=== PATIENT | female | born 1945 | race Caucasian/White ===

== ENCOUNTER 2018-04-03 12:30 | Observation (INO) | payer OTHER ==
[~2018-04-03] VITALS: Ht 160 cm; Wt 64.2 kg
--- NOTE | 2018-04-03 12:41 | ED GENERAL ADULT ---
History of Present Illness General Chief Complaint: General Adult Stated Complaint: RECTAL BLEEDING Source: patient Exam Limitations: no limitations Vital Signs & Intake/Output Vital Signs & Intake/Output Vital Signs Date Time Temp Pulse Resp B/P B/P Pulse O2 O2 Flow FiO2 Mean Ox Delivery Rate 04/03 1236 98.2 83 18 148/89 98 Room Air Allergies Coded Allergies: Penicillins (Intermediate, RASH 04/03/18) Sulfa (Sulfonamide Antibiotics) (Intermediate, RASH 04/03/18) codeine (Intermediate, N/V 04/03/18) Triage Note: HAS INTERNAL HEMERRHOID THAT WAS BANDED BY DR MAHARAJ YESTERDAY AND HAS NOT STOPPED BLEEDING, PASSING CLOTS. HAS GONE THROUGH 2 PADS SINCE LAST NIGHT. DENIES DIZZINESS. COLORING APPROPRIATE. Triage Nurses Notes Reviewed? yes Onset: Abrupt Duration: hour(s): Timing: recent history HPI: 04/03/18 2:30 PM 72-year-old female presents to the emergency department for rectal bleeding. According to the patient she had banding of internal hemorrhoids done by Dr. hansen in the office yesterday. She had been doing well and then today she had a sudden onset of discomfort and profuse rectal bleeding. She says she is dizzy when she stands up now. She said she spilled the toilet 3 or 4 times with gross blood. She denies any pain. Past History Travel History Traveled to [place] past 21 day No Medical History Any Pertinent Medical History? see below for history Neurological: NONE EENT: NONE Cardiovascular: hypertension Respiratory: NONE Gastrointestinal: NONE Hepatic: NONE Renal: NONE Musculoskeletal: NONE Psychiatric: NONE Endocrine: NONE Blood Disorders: NONE Cancer(s): NONE Surgical History Surgical History: HEMORRHOID BANDING Psychosocial History What is your primary language Djib[place]ian Tobacco Use: Never used Family History Hx Contributory? No Review of Systems Review of Systems Constitutional: Denies: fever. EENTM: Reports: no symptoms. Respiratory: Reports: no symptoms. Cardiovascular: Reports: no symptoms. GI: Reports: see HPI. Genitourinary: Reports: no symptoms. Musculoskeletal: Reports: no symptoms. Skin: Reports: no symptoms. Neurological/Psychological: Reports: no symptoms. Hematologic/Endocrine: Reports: bleeding. Immunologic/Allergic: Reports: no symptoms. Physical Exam Physical Exam General Appearance: well developed/nourished, alert, awake, anxious, moderate distress Head: atraumatic, normal appearance Eyes: Bilateral: normal appearance, PERRL, EOMI. Ears, Nose, Throat: normal pharynx, normal ENT inspection, hearing grossly normal Neck: normal inspection, supple, full range of motion Respiratory: normal breath sounds, chest non-tender, no respiratory distress Cardiovascular: regular rate/rhythm Peripheral Pulses: 4+ radial (R), 4+ radial (L) Gastrointestinal: soft, non-tender Rectal: RECTAL EXAM IS POSITIVE FOR GROSS BLOOD. CONSISTENT RECTAL BLEEDING THAT IS OZZING Back: normal range of motion Extremities: no edema Neurologic/Psych: no motor/sensory deficits, awake, alert, oriented x 3 Skin: intact, normal color, warm/dry Core Measures ACS in differential dx? No CVA/TIA Diagnosis: No Sepsis Present: No Sepsis Focused Exam Completed? No Progress Differential Diagnoses I considered the following diagnoses in my evaluation of the patient: [ Coagulopathy, hemorrhagic internal hemorrhoid, rectal muscle laceration] Plan of Care: Orders Procedure Date/time Status EKG 04/03 1438 Active PARTIAL THROMBOPLASTIN TIME 04/03 1234 Complete PROTHROMBIN TIME 04/03 1234 Complete COMPREHENSIVE METABOLIC PANEL 04/03 1234 Complete CBC WITHOUT DIFFERENTIAL 04/03 1234 Complete TYPE & SCREEN (NOT X-MATCH) 04/03 1234 Complete Laboratory Tests 04/03/18 1310: Anion Gap 9, Estimated GFR > 60, BUN/Creatinine Ratio 25.0, Glucose 101 H, Calcium 10.2, Total Bilirubin 0.2, AST 23, ALT 36, Alkaline Phosphatase 95, Total Protein 6.9, Albumin 4.0, Globulin 2.9, Albumin/Globulin Ratio 1.4, PT 11.3, INR 1.04, APTT 28, CBC w Diff NO MAN DIFF REQ, RBC 4.11 L, MCV 89.7, MCH 30.7, MCHC 34.2, RDW 13.9, MPV 7.7, Gran % 87.6 H, Lymphocytes % 8.5 L, Monocytes % 3.7, Eosinophils % 0.1, Basophils % 0.1, Absolute Granulocytes 13.5 H, Absolute Lymphocytes 1.3, Absolute Monocytes 0.6, Absolute Eosinophils 0, Absolute Basophils 0 Initial ED EKG: PENDING Departure Departure Disposition: STILL A PATIENT Condition: Stable Clinical Impression Primary Impression: Rectal bleeding Departure Forms: Customer Survey General Discharge Information OR/GI Note Spoke With: Terrell Maharaj Jr., DO ED Treatment Decision: SAMANTHA SHELTON requires urgent operative management or an emergent procedure that cannot be performed in the Emergency Room setting. Critical Care Note Critical Care Note Critical Care Time: 30-74 min
[2018-04-03 13:19] LABS: ABSOLUTE BASOPHIL COUNT 0 /CUMM (0.0-0.2); ABSOLUTE EOSINOPHIL COUNT 0 /CUMM (0.0-0.7); ABSOLUTE GRANULOCYTE CT 13.5 /CUMM (1.4-6.5); ABSOLUTE LYMPH COUNT 1.3 /CUMM (1.2-3.4); ABSOLUTE MONOCYTE COUNT 0.6 /CUMM (0.10-0.60); BASOPHIL % 0.1 % (0.0-2.0); EOSINOPHIL % 0.1 % (0-5); HEMATOCRIT 36.8 % (37-47); MEAN CORPUSCULAR HGB 30.7 PG (27.0-31.0); MEAN CORPUSCULAR HGB CONC 34.2 G/DL (33.0-37.0); MEAN CORPUSCULAR VOLUME 89.7 FL (81.0-99.0); MEAN PLATELET VOLUME 7.7 FL (7.4-10.4); PLATELET COUNT 315 /CUMM (130-400); RBC DISTRIBUTION WIDTH 13.9 % (11.5-14.5); RED BLOOD CELL CT 4.11 /CUMM (4.20-5.40); WHITE BLOOD CELL COUNT 15.4 /CUMM (4.8-10.8)
[2018-04-03 13:27] LABS: PT 11.3 SEC (9.4-12.5); PTT 28 SEC (25-37)
[2018-04-03 13:45] LABS: GRANULOCYTE % 87.6 % (42.2-75.2)
--- NOTE | 2018-04-03 15:59 | Operative Report ---
Operative/Inv Procedure Report Surgery Date: 04/03/18 Name of Procedure: 1. Exam under anesthesia control of rectal bleeding 2. Rigid sigmoidoscopy to 20 cm Pre-Operative Diagnosis: Rectal bleeding Post-Operative Diagnosis: Rectal bleeding Estimated Blood Loss: 50ml to 100ml Surgeon/Checking Department Supervisor: Terrell Maharaj DO Junior Anesthesia: local monitored anesthesi, block Monitors: For routine Drains: None Specimens: None Complications: None Condition: Good Operative Indication: This is a 72-year-old female well-known to me. Approximately 2-3 weeks ago we did a rubber band ligation of an internal hemorrhoid. Patient returned to my office yesterday feeling well. Her symptoms had greatly improved but were still present so a second rubber band was performed. Patient left our office in good condition. This morning she had a bowel movement and per her reports felt a pop. Then she started seeing blood per rectum which she described as quite vigorous. She came to the ER and had a large amount of fresh blood in her rectum. In Plast several bloody bowel movements while in the ER. She remained hemodynamically stable but appear to be actively bleeding so I took her emergently to the operating room. Operative/Procedure Note Note: Patient was taken into the operating room. She is placed in the supine position. She then received IV sedation. Once the patient was comfortable, she was converted to lithotomy position in [facility] stirps. Perineum was prepped and draped in usual fashion. An anal block was performed using 0.5% Marcaine with epinephrine. A total of 30 cc was injected. Next a digital rectal exam was performed. Immediately I evacuated approximately 5200 cc of gelatinous red blood. The [facility] operating proctoscope was placed in the anal canal. I irrigated out any residual blood. In the left lateral anal canal the rubber band was still present from yesterday. This hemorrhoid was ischemic which is to be expected. There was no active bleeding from this site. In the right lateral anal canal was an ulcer from her rubber band 2 weeks earlier. This ulcer was slowly actively oozing red blood. Initially I cauterized this ulcerated area aggressively. The area was then oversewn with 2-0 Vicryl in a [id number] fashion. Multiple sutures were placed to ensure hemostasis. At this point a rigid sigmoidoscopy was performed. The scope was advanced to 20 cm from the anal verge. There was small amount of old dark blood present at this level. This was irrigated and aspirated away using sterile saline. After evacuating any gross blood we observe the patient for at least 10 minutes. We then reinserted the endoscope and there was no evidence of fresh blood. At this point the perineum was cleansed and dried. A bulky dressing was placed over the anus. The patient was let down from lithotomy to supine. The procedure was concluded. At the end of the procedure all needle sponges and instruments were accounted for. The patient tolerated procedure well was taken to recovery room in good condition.
[2018-04-03] MEDS ORDERED: ATENOLOL25 M1 PO (16:26)
[2018-04-03] MEDS ORDERED: AMLODIPINE BESYL5 M1 PO (16:26)
--- NOTE | 2018-04-03 16:44 | Admission Core Measures ---
Acute Coronary Syndrome (CM) ACS Core Measures Acute Coronary Syndrome Diagnosis No Congestive Heart Failure (NEW) CHF Core Measures Congestive Heart Failure Diagnosis No Cerebrovascular Accident CVA Core Measures CVA/TIA Diagnosis No Venous Thromboembolism VTE Core Arsh (View Protocol) VTE Risk Factors Surgery No Mechanical VTE Prophylaxis d/t N/A MechProphylax Ordered No VTE Pharm Prophylaxis d/t Surgical Contraindication Problem List As ranked by this Provider includes Assessment & Plan 1. Rectal bleeding HOME MEDS Home Med List Amlodipine Besylate 5 MG TABLET 1 TAB PO DAILY HYPERTENSION (Reported) Atenolol 25 MG TABLET 1 TAB PO DAILY HYPERTENSION (Reported)
--- NOTE | 2018-04-03 16:51 | Patient Discharge Instructions ---
Discharge Instructions General Discharge Information You were seen/treated for: Rectal bleeding You had these procedures: Evaluation under anesthesia, control of rectal bleed with oversew of former hemorrhoid site Watch for these problems: Worsening rectal bleeding Inability to move bowels Dizziness/excess fatigue Fever/flu like illnesses Special Instructions: Suggest the use of stool softeners to avoid straining with moving bowels Diet Continue normal diet: Yes Activity Full Activity/No Limits: No Activity Self Limited: Yes Pounds, do NOT lift more than: 10 Other activity limits: no exercise for one week Acute Coronary Syndrome Inclusion Criteria At DC or during hospital stay patient has or had the following: ACS DIAGNOSIS No Discharge Core Measures Meds if any: Prescribed or Continued at Discharge Meds if any: NOT Prescribed or Continued at Discharge Congestive Heart Failure Inclusion Criteria At DC or during hospital stay patient has or had the following: CHF DIAGNOSIS No Discharge Core Measures Meds if any: Prescribed or Continued at Discharge Meds if any: NOT Prescribed or Continued at Discharge Cerebrovascular accident Inclusion Criteria At DC or during hospital stay patient has or had the following: CVA/TIA Diagnosis No Discharge Core Measures Meds if any: Prescribed or Continued at Discharge Meds if any: NOT Prescribed or Continued at Discharge Venous thromboembolism Inclusion Criteria VTE Diagnosis No VTE Type NONE VTE Confirmed by (Test) NONE Discharge Core Measures - Per Current guidelines, there needs to be overlap - treatment for the first 5 days of Warfarin therapy. - If discharged on Warfarin prior to 5 days of - overlap therapy, the patient will need to be - assessed for post discharge needs including - *Post discharge parental anticoagulation - *Warfarin and/or parental anticoagulation education - *Follow up date to check INR post discharge At least 5 days overlap therapy as Inpatient No Meds if any: Prescribed or Continued at Discharge Note: Overlap Therapy is Warfarin and Anticoagulant Meds if any: NOT Prescribed or Continued at Discharge
--- NOTE | 2018-04-03 16:56 | Surgical Discharge Summary ---
Visit Information Visit Dates Admission Date: 04/03/18 Discharge Date: 04/04/18 History of Present Illness Chief Complaint: Rectal bleeding Medical History Neurological: NONE EENT: NONE Cardiovascular: hypertension Respiratory: NONE Gastrointestinal: NONE Hepatic: NONE Renal: NONE Musculoskeletal: NONE Psychiatric: NONE Endocrine: NONE Blood Disorders: NONE Cancer(s): NONE Surgical History Pertinent Surgical History: HEMORRHOID BANDING Psychosocial History What is Your Primary Language? Armenian Review of Systems: See H&P Hospital Course Course Attending Physician: Terrell Maharaj Jr., DO [facility] Patient was brought to ER with complaints of rectal bleeding, she is 2 weeks s/p banding for hemorrhoid, she also had a hemorroid banded one day prior on the opposite side. She was brought to OR for an evaluation under anesthesia. The band from the prior day's procedure was still intact, the source of bleeding was identified as the site from the banding 2 weeks ago. The site was oversewn and hemostasis was achieved. She tolerated the procedure well and was transferred to a general surgical floor. Her hemodynamic status remained stable and within normal limits. She was deemed appropriate for discharge post-op day#1 with no further evidence of rectal bleeding and stable labs. Complications: None Allergies: Coded Allergies: Penicillins (Intermediate, RASH 04/03/18) Sulfa (Sulfonamide Antibiotics) (Intermediate, RASH 04/03/18) codeine (Intermediate, N/V 04/03/18) Disposition Summary Disposition Principal Diagnosis: Rectal bleeding s/p banding of hemorrhoid Additional Diagnosis: None Discharge Disposition: home or self care Discharge Instructions General Discharge Information Code Status: Full Code Patient's Diet: Advance as tolerated, stool softener to avoid straining Patient's Activity: As tolerated, avoid heavy lifting and straining. No exercise for one week. Follow-Up Instructions/Appts: Follow up with Dr. Maharaj in 1-2 weeks. Please call office to arrange/confirm this appointment. Medications at Discharge Discharge Medications: Continue taking these medications: Atenolol (Atenolol) 25 MG TABLET 1 Tablet ORAL DAILY Amlodipine Besylate (Amlodipine Besylate) 5 MG TABLET 1 Tablet ORAL DAILY [facility]
[2018-04-03 18:00] VITALS: BP 124/76
--- NOTE | 2018-04-03 19:17 | PN- General Surgery ---
Subjective Subjective: Patient seen and evaluated for post op check. Patient doing well and sitting upright in bed eating dinner upon arrival. She reports she did get oob and had small BM without much blood - much improved from this morning. She does not have any pain and has no symptoms of dizziness, headaches, palpitations, sob, n/v/d. Overall, doing very well. Objective Vital Signs and I&Os Vital Signs Date Time Temp Pulse Resp B/P B/P Pulse O2 O2 Flow FiO2 Mean Ox Delivery Rate 04/03 1800 98.1 76 18 124/76 96 Room Air 04/03 1443 96.7 76 16 171/78 100 Room Air Room Air 04/03 1236 98.2 83 18 148/89 98 Room Air Intake & Output 04/03 1600 04/03 0804/03 0000 04/02 1600 04/02 0800 04/02 0000 Intake Total Output Total Balance Patient 135 lb Weight Physical Exam: General: Elderly female, sitting upright in bed, NAD CV: RRR Pulm: CTA b/l Abdomen: soft, nt, nd Extremities: no edema, no calf tenderness Current Medications: Current Medications Sig/Vinnie Start time Last Medication Dose Route Stop Time Status Admin Acetaminophen 650 MG Q4P PRN 04/03 1800 AC PO Amlodipine Besylate 5 MG DAILY 04/04 900 AC PO Atenolol 25 MG DAILY 04/04 09 AC PO Dextrose/Sodium 1,000 ML Q13H 04/03 1800 AC Chloride IV Ondansetron HCl 4 MG Q6P PRN 04/03 1800 AC IV Promethazine HCl 12.5 MG Q6P PRN 04/03 1800 AC IV 04/10 1629 Senna/Docusate Sodium 1 TAB BID 04/03 2100 AC PO Sodium Chloride 1,000 ML BOLUS ONE 04/03 1330 DC 04/03 IV 04/03 1429 1400 Results Last 48 Hours of Labs: Laboratory Tests 04/03 1310 Chemistry Sodium (137 - 145 mmol/L) 136 L Potassium (3.5 - 5.1 mmol/L) 4.1 Chloride (98 - 107 mmol/L) 103 Carbon Dioxide (22 - 30 mmol/L) 24 Anion Gap (5 - 16) 9 BUN (7 - 17 mg/dL) 15 Creatinine (0.5 - 1.0 mg/dL) 0.6 Estimated GFR (>60 ml/min) > 60 BUN/Creatinine Ratio (7 - 25 %) 25.0 Glucose (65 - 99 mg/dL) 101 H Calcium (8.4 - 10.2 mg/dL) 10.2 Total Bilirubin (0.2 - 1.3 mg/dL) 0.2 AST (14 - 36 U/L) 23 ALT (9 - 52 U/L) 36 Alkaline Phosphatase (<127 U/L) 95 Total Protein (6.3 - 8.2 g/dL) 6.9 Albumin (3.5 - 5.0 g/dL) 4.0 Globulin (1.9 - 4.2 gm/dL) 2.9 Albumin/Globulin Ratio (1.1 - 2.2 %) 1.4 Coagulation PT (9.4 - 12.5 SEC) 11.3 INR (0.90 - 1.19) 1.04 APTT (25 - 37 SEC) 28 Hematology CBC w Diff NO MAN DIFF REQ WBC (4.8 - 10.8 /CUMM) 15.4 H RBC (4.20 - 5.40 /CUMM) 4.11 L Hgb (12.0 - 16.0 G/DL) 12.6 Hct (37 - 47 %) 36.8 L MCV (81.0 - 99.0 FL) 89.7 MCH (27.0 - 31.0 PG) 30.7 MCHC (33.0 - 37.0 G/DL) 34.2 RDW (11.5 - 14.5 %) 13.9 Plt Count (130 - 400 /CUMM) 315 MPV (7.4 - 10.4 FL) 7.7 Gran % (42.2 - 75.2 %) 87.6 H Lymphocytes % (20.5 - 51.1 %) 8.5 L Monocytes % (1.7 - 9.3 %) 3.7 Eosinophils % (0 - 5 %) 0.1 Basophils % (0.0 - 2.0 %) 0.1 Absolute Granulocytes (1.4 - 6.5 /CUMM) 13.5 H Absolute Lymphocytes (1.2 - 3.4 /CUMM) 1.3 Absolute Monocytes (0.10 - 0.60 /CUMM) 0.6 Absolute Eosinophils (0.0 - 0.7 /CUMM) 0 Absolute Basophils (0.0 - 0.2 /CUMM) 0 Assessment/Plan Assessment/Plan This is a 72 y/o f w/ PMHx HTN and hemorrhoids who approximately 2-3 weeks ago underwent a rubber band ligation of an internal hemorrhoid and another rubber band place yesterday by Dr. Maharaj who prsented to [place] ED with large amount of fresh blood in her rectum. Pt now POD#0 s/p from oversew and repair of bleeding ulcer. Patient on surgical floor and remains HD stable and pain controlled. - FU labs at 8PM tonight and again in AM - keep for obs/extended recovery - monitor vitals - Will order stool softener so patient does not strain - tylenol PRn pain - keep clears and NPO aftermidnight in case needs urgent take back to OR for ongoing bleed - continue home cardiac meds Core Measures Venous Thromboembolism VTE Risk Factors Surgery No Mechanical VTE Prophylaxis d/t N/A MechProphylax Ordered No VTE Pharm Prophylaxis d/t Surgical Contraindication
[2018-04-03 21:09] LABS: ABSOLUTE BASOPHIL COUNT 0 /CUMM (0.0-0.2); ABSOLUTE EOSINOPHIL COUNT 0 /CUMM (0.0-0.7); ABSOLUTE GRANULOCYTE CT 9.1 /CUMM (1.4-6.5); ABSOLUTE LYMPH COUNT 1.6 /CUMM (1.2-3.4); ABSOLUTE MONOCYTE COUNT 0.6 /CUMM (0.10-0.60); BASOPHIL % 0.3 % (0.0-2.0); EOSINOPHIL % 0 % (0-5); MEAN CORPUSCULAR HGB CONC 33.4 G/DL (33.0-37.0); MEAN CORPUSCULAR VOLUME 89.9 FL (81.0-99.0); MEAN PLATELET VOLUME 7.9 FL (7.4-10.4); PLATELET COUNT 293 /CUMM (130-400); RBC DISTRIBUTION WIDTH 14.2 % (11.5-14.5); RED BLOOD CELL CT 3.32 /CUMM (4.20-5.40); WHITE BLOOD CELL COUNT 11.4 /CUMM (4.8-10.8)
[2018-04-03 21:10] LABS: HEMATOCRIT 29.9 % (37-47)
[2018-04-03 22:00] VITALS: BP 136/64
[2018-04-04] VITALS: BP 140/64
[2018-04-04 03:36] VITALS: BP 102/44
[2018-04-04 06:34] VITALS: BP 126/70
[2018-04-04 08:07] LABS: ABSOLUTE BASOPHIL COUNT 0 /CUMM (0.0-0.2); ABSOLUTE EOSINOPHIL COUNT 0 /CUMM (0.0-0.7); ABSOLUTE GRANULOCYTE CT 6.7 /CUMM (1.4-6.5); ABSOLUTE LYMPH COUNT 2.1 /CUMM (1.2-3.4); ABSOLUTE MONOCYTE COUNT 0.5 /CUMM (0.10-0.60); BASOPHIL % 0.4 % (0.0-2.0); EOSINOPHIL % 0.2 % (0-5); GRANULOCYTE % 72.2 % (42.2-75.2); HEMATOCRIT 26.9 % (37-47); MEAN CORPUSCULAR HGB 30.3 PG (27.0-31.0); MEAN CORPUSCULAR HGB CONC 33.8 G/DL (33.0-37.0); MEAN CORPUSCULAR VOLUME 89.5 FL (81.0-99.0); MEAN PLATELET VOLUME 8.5 FL (7.4-10.4); PLATELET COUNT 227 /CUMM (130-400); RBC DISTRIBUTION WIDTH 14.1 % (11.5-14.5); RED BLOOD CELL CT 3.01 /CUMM (4.20-5.40); WHITE BLOOD CELL COUNT 9.3 /CUMM (4.8-10.8)
[2018-04-04 08:13] VITALS: BP 126/70
--- NOTE | 2018-04-04 08:19 | PN- General Surgery ---
Subjective Subjective: Reports some rectal soreness, but no further rectal bleeding overnight. Did not sleep well. Currently npo, asking if she can try clears this morning. Episode of nausea overnight resolved after zofran. Passing a lot of flatus. Out of bed to bathroom. No dizziness. No shortness of breath. No chest pains. Voiding well. Objective Vital Signs and I&Os Vital Signs Date Time Temp Pulse Resp B/P B/P Pulse O2 O2 Flow FiO2 Mean Ox Delivery Rate 04/04 813 85 126/70 04/04 813 85 126/70 04/04 0634 98.6 85 20 126/70 95 Room Air 04/04 0336 97.6 75 20 102/44 95 Room Air 04/04 0000 98.6 77 20 140/64 95 Room Air 04/03 2200 98.6 73 20 136/64 97 Room Air / 1800 98.1 76 18 124/76 96 Room Air 04/03 1443 96.7 76 16 171/78 100 Room Air Room Air 04/03 1236 98.2 83 18 148/89 98 Room Air Intake & Output 04/04 1600 04/04 0800 04/04 0000 04/03 1600 04/03 0800 04/03 0000 Intake Total 600 225 Output Total 400 400 Balance 200 -175 Intake, IV 600 225 Number 1 Bowel Movements Output, Urine 400 400 Patient 141 lb 135 lb 135 lb Weight Physical Exam: General - alert & oriented x 3. comfortable. no acute distress. Lungs - clear bilaterally. no w/r/r. Cardiac - s1s2. reg. Abdomen - soft. nontender. active bowel sounds. No bleeding per rectum appreciated. Extremities - warm bilaterally. no c/c/e. calves soft and nontender b/l. Current Medications: Current Medications Sig/Vinnie Start time Last Medication Dose Route Stop Time Status Admin Acetaminophen 650 MG Q4P PRN 04/03 1800 AC 04/04 PO 0623 Acetaminophen 1,000 MG .STK-MED ONE 04/03 161 DC IV 04/03 161 Amlodipine Besylate 5 MG DAILY 04/04 900 AC 04/04 PO 08 Atenolol 25 MG DAILY 04/04 900 AC 04/04 PO 08 Dextrose/Sodium 1,000 ML Q13H 04/03 1800 DC 04/04 Chloride IV 044 Docusate Sodium 100 MG DAILY 04/04 900 AC 04/04 PO 0812 Ondansetron HCl 4 MG Q6P PRN 04/03 1800 AC 04/03 IV 2338 Promethazine HCl 12.5 MG Q6P PRN 04/03 1800 AC IV 04/10 1629 Senna/Docusate Sodium 1 TAB BID 04/03 2100 AC 04/04 PO 0812 Sodium Chloride 1,000 ML BOLUS ONE 04/03 1330 DC 04/03 IV 04/03 1429 1400 Results Last 48 Hours of Labs: Laboratory Tests 04/04 Chemistry Sodium (137 - 145 mmol/L) 133 L Potassium (3.5 - 5.1 mmol/L) 3.7 Chloride (98 - 107 mmol/L) 102 Carbon Dioxide (22 - 30 mmol/L) 22 Anion Gap (5 - 16) 8 BUN (7 - 17 mg/dL) 11 Creatinine (0.5 - 1.0 mg/dL) 0.6 Estimated GFR (>60 ml/min) > 60 BUN/Creatinine Ratio (7 - 25 %) 18.3 Hematology CBC w Diff Pending NO MAN DIFF REQ WBC (4.8 - 10.8 /CUMM) Pending 11.4 H RBC (4.20 - 5.40 /CUMM) Pending 3.32 L Hgb (12.0 - 16.0 G/DL) Pending 10.0 L Hct (37 - 47 %) Pending 29.9 L MCV (81.0 - 99.0 FL) Pending 89.9 MCH (27.0 - 31.0 PG) Pending 30.0 MCHC (33.0 - 37.0 G/DL) Pending 33.4 RDW (11.5 - 14.5 %) Pending 14.2 Plt Count (130 - 400 /CUMM) Pending 293 MPV (7.4 - 10.4 FL) Pending 7.9 Gran % (42.2 - 75.2 %) 80.0 H Lymphocytes % (20.5 - 51.1 %) 14.4 L Monocytes % (1.7 - 9.3 %) 5.3 Eosinophils % (0 - 5 %) 0 Basophils % (0.0 - 2.0 %) 0.3 Absolute Granulocytes (1.4 - 6.5 /CUMM) 9.1 H Absolute Lymphocytes (1.2 - 3.4 /CUMM) 1.6 Absolute Monocytes (0.10 - 0.60 /CUMM) 0.6 Absolute Eosinophils (0.0 - 0.7 /CUMM) 0 Absolute Basophils (0.0 - 0.2 /CUMM) 0 08/03 1310 Chemistry Sodium (137 - 145 mmol/L) 136 L Potassium (3.5 - 5.1 mmol/L) 4.1 Chloride (98 - 107 mmol/L) 103 Carbon Dioxide (22 - 30 mmol/L) 24 Anion Gap (5 - 16) 9 BUN (7 - 17 mg/dL) 15 Creatinine (0.5 - 1.0 mg/dL) 0.6 Estimated GFR (>60 ml/min) > 60 BUN/Creatinine Ratio (7 - 25 %) 25.0 Glucose (65 - 99 mg/dL) 101 H Calcium (8.4 - 10.2 mg/dL) 10.2 Total Bilirubin (0.2 - 1.3 mg/dL) 0.2 AST (14 - 36 U/L) 23 ALT (9 - 52 U/L) 36 Alkaline Phosphatase (<127 U/L) 95 Total Protein (6.3 - 8.2 g/dL) 6.9 Albumin (3.5 - 5.0 g/dL) 4.0 Globulin (1.9 - 4.2 gm/dL) 2.9 Albumin/Globulin Ratio (1.1 - 2.2 %) 1.4 Coagulation PT (9.4 - 12.5 SEC) 11.3 INR (0.90 - 1.19) 1.04 APTT (25 - 37 SEC) 28 Hematology CBC w Diff NO MAN DIFF REQ WBC (4.8 - 10.8 /CUMM) 15.4 H RBC (4.20 - 5.40 /CUMM) 4.11 L Hgb (12.0 - 16.0 G/DL) 12.6 Hct (37 - 47 %) 36.8 L MCV (81.0 - 99.0 FL) 89.7 MCH (27.0 - 31.0 PG) 30.7 MCHC (33.0 - 37.0 G/DL) 34.2 RDW (11.5 - 14.5 %) 13.9 Plt Count (130 - 400 /CUMM) 315 MPV (7.4 - 10.4 FL) 7.7 Gran % (42.2 - 75.2 %) 87.6 H Lymphocytes % (20.5 - 51.1 %) 8.5 L Monocytes % (1.7 - 9.3 %) 3.7 Eosinophils % (0 - 5 %) 0.1 Basophils % (0.0 - 2.0 %) 0.1 Absolute Granulocytes (1.4 - 6.5 /CUMM) 13.5 H Absolute Lymphocytes (1.2 - 3.4 /CUMM) 1.3 Absolute Monocytes (0.10 - 0.60 /CUMM) 0.6 Absolute Eosinophils (0.0 - 0.7 /CUMM) 0 Absolute Basophils (0.0 - 0.2 /CUMM) 0 Assessment/Plan Assessment/Plan This 72 year old female with hx HTN and hemorrhoids s/p rubber band ligation of an internal hemorrhoid 2-3 wks ago and another rubber band place 1 day HEAD BAKER who presented to [place] ED with large amount of fresh blood in her rectum, now POD# 1 s/p from oversewn repair of bleeding ulcer, without any further evidence of rectal bleeding overnight regular diet this morning. d/c iv fluids f/u AM labs continue tylenol prn pain stool softener twice daily oob/ambulating venodynes - dvt ppx home meds ordered, including beta cathleen d/c home today if no further bleeding, labs stable, and tolerating diet observation status given likelihood of discharge to home today d/w Core Measures Venous Thromboembolism VTE Risk Factors Surgery No Mechanical VTE Prophylaxis d/t N/A MechProphylax Ordered No VTE Pharm Prophylaxis d/t Surgical Contraindication
[2018-04-04] MEDS ORDERED: TYLENOL325 M1 PO (08:24)
[2018-04-04] MEDS ORDERED: DOCUSATE SODIU100 M3 PO (08:24)
== END 2018-04-04 09:42 ==
LOC: ERH 12:30 → PACUH 16:05 → EDBEDREQ 16:27 → ENRESERV 16:48 → ENTRNSPT 17:18 → EDTRNSPT 17:24 → EDTRNSPTSTS 17:24 → 2NB 17:33 → CMPTRNSPT 21:09 → ENPENDDIS 04-04 08:30 → 2NB 04-04 09:42
PROVIDERS: Nurse Practitioner; Physician Assistant Medical
DX: K62.5 Hemorrhage of anus and rectum (principal); K62.6 Ulcer of anus and rectum; Z98.890 Other specified postprocedural states; I10 Essential (primary) hypertension; Z79.82 Long term (current) use of aspirin
CPT/HCPCS: 6040; 36592; 82436; 93005; 93010; 96374; G0378; J0131; J2405; J2550; J3010; J7042